=== PATIENT | female | born 1985 | race Asian ===

== ENCOUNTER 2019-10-11 11:40 | Inpatient (IN) | payer OTHER ==
[~2019-10-11] VITALS: Ht 165.1 cm; Wt 81.8 kg
[~2019-10-11 11:40] MED LIST: IBUP-1222 PO; LEVO50TA5; OXYC-302 PO; PREN1TAB60
[2019-10-11] MEDS ORDERED: LACTATED RINGERS 1,000 ML IV SCH ×2 (11:42→15:15)
[2019-10-11] MEDS ORDERED: SODIUM CITRATE/CITRIC ACID 30 ML UDC PO ONE (12:00)
[2019-10-11] MEDS ORDERED: LACTATED RINGERS 1,000 ML IVBOLUS ONE (12:00)
[2019-10-11] MEDS ORDERED: PLEASE ENTER HEIGHT AND WEIGHT MC SCH (12:00)
[2019-10-11] MEDS ORDERED: METOCLOPRAMIDE 5 MG/ML, 2ML IV ONE (12:00)
[2019-10-11 12:19] LABS: BASOPHILS # (AUTO) 0.03 x10^3/uL (0-0.1); BASOPHILS % (AUTO) 0 % (0-1); EOSINOPHILS # (AUTO) 0.04 x10^3/uL (0-0.4); EOSINOPHILS % (AUTO) 1 % (1-7); LYMPHOCYTES # (AUTO) 1.06 x10^3/uL (1-3.4); LYMPHOCYTES % (AUTO) 14 % (22-44); MD NO; MEAN CORPUSCULAR HEMOGLOBIN 31.8 pg (27.0-34.8); MEAN CORPUSCULAR HGB CONC 33.6 g/dL (32.4-35.8); MEAN CORPUSCULAR VOLUME 94.6 fL (80-100); MEAN PLATELET VOLUME 11.3 fL (7.4-10.4); MONOCYTES # (AUTO) 0.42 x10^3/uL (0.2-0.8); MONOCYTES % (AUTO) 6 % (2-9); NEUTROPHILS % (AUTO) 79 % (42-75); PLATELET COUNT 147 x10^3/uL (130-400); RED BLOOD COUNT 4.07 x10^6/uL (3.82-5.3); RED CELL DISTRIBUTION WIDTH 13.4 % (9.6-15.2)
[2019-10-11] MEDS ORDERED: NEWBORN KIT ONE (12:27)
[2019-10-11] MEDS ORDERED: OXYTOCIN 30U/ 0.9% NaCL 500ML 500 ML ONE (12:27)
[2019-10-11] MEDS ORDERED: METOCLOPRAMIDE 5 MG/ML, 2ML ONE (12:27)
[2019-10-11] MEDS ORDERED: OXYcodone 5 MG/5 ML ORAL.SOL UDC PO PRN (13:30)
[2019-10-11] MEDS ORDERED: EPHEDRINE 50 MG/ML, 1ML IVPush PRN (13:30)
[2019-10-11] MEDS ORDERED: ONDANSETRON 2MG/ML, 2ML IVPush PRN (13:30)
[2019-10-11] MEDS ORDERED: hydrALAzine 20 MG/ML, 1ML IV PRN (13:30)
[2019-10-11] MEDS ORDERED: MIDAZOLAM 1 MG/ML, 2ML IV PRN (13:30)
[2019-10-11] MEDS ORDERED: FENTANYL PF 100 MCG/2ML IV PRN (13:30)
[2019-10-11] MEDS ORDERED: HYDROcodone/APAP 7.5-325MG/15ML UDC PO PRN (13:30)
[2019-10-11] MEDS ORDERED: HYDROmorphone 2 MG/ML, 1ML IVPush PRN (13:30)
[2019-10-11] MEDS ORDERED: METOPROLOL 1 MG/ML, 5ML IV PRN (13:30)
[2019-10-11] MEDS ORDERED: MEPERIDINE/PF 25MG/0.5ML IVPush PRN (13:30)
[2019-10-11] MEDS ORDERED: PROMETHAZINE 25 MG/ML, 1ML IV PRN (13:30)
[2019-10-11] MEDS ORDERED: LABETALOL 5MG/ML, 20ML IV PRN (13:30)
[2019-10-11] MEDS ORDERED: ALBUTEROL SULFATE 2.5 MG/3 ML NPPB PRN (13:30)
[2019-10-11 13:34] VITALS: BP 124/66
[2019-10-11] MEDS ORDERED: FENTANYL PF 100 MCG/2ML ONE ×2 (13:43→17:00)
[2019-10-11] MEDS ORDERED: EPHEDRINE 50 MG/ML, 1ML ONE (13:43)
[2019-10-11] MEDS ORDERED: KETOROLAC 30 MG/1 ML ONE (13:43)
[2019-10-11] MEDS ORDERED: CEFAZOLIN 1,000 MG ONE (13:43)
[2019-10-11] MEDS ORDERED: OXYTOCIN 10 UNITS/ML, 1ML ONE (13:43)
[2019-10-11] MEDS ORDERED: DEXAMETHASONE 4 MG/ML, 1ML ONE (13:43)
[2019-10-11] MEDS ORDERED: PHENYLEPHRINE 10 MG/ML ONE (13:43)
[2019-10-11] MEDS ORDERED: ONDANSETRON 2MG/ML, 2ML ONE (13:43)
[2019-10-11] MEDS ORDERED: HYDROmorphone 2 MG/ML, 1ML ONE (13:44)
[2019-10-11] MEDS: LACTATED RINGERS 1,000 ML IV SCH ×2 (15:15→23:15)
[2019-10-11] MEDS ORDERED: OXYcodone IR 5MG TABLET PO PRN (15:30)
[2019-10-11] MEDS ORDERED: MORPHINE SULFATE 4 MG/ML, 1ML IVPush PRN (15:30)
[2019-10-11] MEDS ORDERED: MISOPROSTOL 200 MCG TABLET PR PRN (15:30)
[2019-10-11] MEDS ORDERED: ONDANSETRON 2MG/ML, 2ML IV PRN (15:30)
[2019-10-11] MEDS ORDERED: CALCIUM CARBONATE 500 MG TAB.CHEW PO PRN (15:30)
[2019-10-11] MEDS ORDERED: BISACODYL 10 MG SUPP PR PRN (15:30)
[2019-10-11] MEDS ORDERED: morphine SULFATE 10 MG/ML, 1ML IV PRN (15:30)
[2019-10-11] MEDS: OXYTOCIN 30U/ 0.9% NaCL 500ML 500 ML IV SCH (16:09)
[2019-10-11] MEDS ORDERED: OXYcodone 5 MG/5 ML ORAL.SOL UDC ONE (16:20)
[2019-10-11 17:20] VITALS: BP 114/73
[2019-10-11 19:15] VITALS: BP 115/66
[2019-10-11] MEDS: ACETAMINOPHEN 500 MG TABLET PO SCH (20:27)
[2019-10-11] MEDS: KETOROLAC 30 MG/1 ML IV SCH (21:17)
[2019-10-11] MEDS: OXYcodone IR 5MG TABLET PO PRN (22:14)
[2019-10-11 22:59] LABS: BASOPHILS # (AUTO) 0.01 x10^3/uL (0-0.1); BASOPHILS % (AUTO) 0 % (0-1); EOSINOPHILS % (AUTO) 1 % (1-7); LYMPHOCYTES % (AUTO) 6 % (22-44); MD NO; MEAN CORPUSCULAR VOLUME 93.9 fL (80-100); MEAN PLATELET VOLUME 10.6 fL (7.4-10.4); MONOCYTES # (AUTO) 0.45 x10^3/uL (0.2-0.8); MONOCYTES % (AUTO) 4 % (2-9); NEUTROPHILS # (AUTO) 9.78 x10^3/uL (1.8-6.8); NEUTROPHILS % (AUTO) 89 % (42-75); PLATELET COUNT 118 x10^3/uL (130-400); RED CELL DISTRIBUTION WIDTH 13.3 % (9.6-15.2)
[2019-10-11 23:32] VITALS: BP 102/63
[2019-10-12] MEDS: OXYTOCIN 30U/ 0.9% NaCL 500ML 500 ML IV SCH ×3 (01:15→21:15)
[2019-10-12] MEDS: ACETAMINOPHEN 500 MG TABLET PO SCH ×4 (02:17→20:21)
[2019-10-12] MEDS: KETOROLAC 30 MG/1 ML IV SCH ×3 (03:20→14:17)
[2019-10-12 03:36] VITALS: BP 92/53
[2019-10-12] MEDS: OXYcodone IR 5MG TABLET PO PRN ×3 (06:04→22:43)
[2019-10-12] MEDS: LACTATED RINGERS 1,000 ML IV SCH ×3 (07:15→23:15)
[2019-10-12] MEDS: PRENATAL VIT/IRON/FA 1 EACH TABLET PO SCH (07:57)
[2019-10-12] MEDS: DOCUSATE 100 MG CAPSULE PO PRN ×2 (07:57→20:21)
[2019-10-12 08:00] VITALS: BP 100/62
[2019-10-12] MEDS: FERROUS GLUCONATE 324 MG TABLET PO SCH ×2 (10:07→17:06)
[2019-10-12 11:28] LABS: BASOPHILS # (AUTO) 0.02 x10^3/uL (0-0.1); BASOPHILS % (AUTO) 0 % (0-1); EOSINOPHILS # (AUTO) 0.02 x10^3/uL (0-0.4); EOSINOPHILS % (AUTO) 0 % (1-7); LYMPHOCYTES # (AUTO) 1.24 x10^3/uL (1-3.4); LYMPHOCYTES % (AUTO) 18 % (22-44); MD NO; MEAN CORPUSCULAR HEMOGLOBIN 31.6 pg (27.0-34.8); MEAN CORPUSCULAR HGB CONC 33.4 g/dL (32.4-35.8); MEAN CORPUSCULAR VOLUME 94.6 fL (80-100); MEAN PLATELET VOLUME 10.6 fL (7.4-10.4); MONOCYTES # (AUTO) 0.52 x10^3/uL (0.2-0.8); MONOCYTES % (AUTO) 8 % (2-9); NEUTROPHILS % (AUTO) 74 % (42-75); PLATELET COUNT 119 x10^3/uL (130-400); RED BLOOD COUNT 2.76 x10^6/uL (3.82-5.3); RED CELL DISTRIBUTION WIDTH 13.4 % (9.6-15.2)
[2019-10-12] MEDS ORDERED: KETOROLAC 30 MG/1 ML ONE (13:40)
[2019-10-12] MEDS: IBUPROFEN 600 MG TABLET PO SCH ×2 (15:30→20:21)
[2019-10-12] MEDS: SIMETHICONE 80 MG CHEW TAB PO PRN ×2 (17:08→22:43)
[2019-10-12 20:15] VITALS: BP 107/66
[2019-10-13] MEDS: IBUPROFEN 600 MG TABLET PO SCH ×2 (02:14→07:32)
[2019-10-13] MEDS: ACETAMINOPHEN 500 MG TABLET PO SCH ×2 (02:14→07:33)
[2019-10-13] MEDS: OXYcodone IR 5MG TABLET PO PRN (04:36)
[2019-10-13] MEDS: SIMETHICONE 80 MG CHEW TAB PO PRN (04:36)
[2019-10-13 05:47] LABS: BASOPHILS # (AUTO) 0.02 x10^3/uL (0-0.1); BASOPHILS % (AUTO) 0 % (0-1); EOSINOPHILS # (AUTO) 0.06 x10^3/uL (0-0.4); EOSINOPHILS % (AUTO) 1 % (1-7); LYMPHOCYTES # (AUTO) 1.49 x10^3/uL (1-3.4); LYMPHOCYTES % (AUTO) 23 % (22-44); MD NO; MEAN CORPUSCULAR HEMOGLOBIN 32.3 pg (27.0-34.8); MEAN CORPUSCULAR HGB CONC 33.8 g/dL (32.4-35.8); MEAN CORPUSCULAR VOLUME 95.3 fL (80-100); MEAN PLATELET VOLUME 9.4 fL (7.4-10.4); MONOCYTES # (AUTO) 0.41 x10^3/uL (0.2-0.8); MONOCYTES % (AUTO) 6 % (2-9); NEUTROPHILS % (AUTO) 70 % (42-75); PLATELET COUNT 110 x10^3/uL (130-400); RED BLOOD COUNT 2.64 x10^6/uL (3.82-5.3); RED CELL DISTRIBUTION WIDTH 13.8 % (9.6-15.2)
[2019-10-13] MEDS: LACTATED RINGERS 1,000 ML IV SCH (07:15)
[2019-10-13] MEDS: OXYTOCIN 30U/ 0.9% NaCL 500ML 500 ML IV SCH (07:15)
[2019-10-13] MEDS: FERROUS GLUCONATE 324 MG TABLET PO SCH (07:32)
[2019-10-13] MEDS: DOCUSATE 100 MG CAPSULE PO PRN (07:32)
[2019-10-13] MEDS: PRENATAL VIT/IRON/FA 1 EACH TABLET PO SCH (07:32)
[2019-10-13 07:56] VITALS: BP 103/66
[2019-10-13] MEDS ORDERED: FE F1CAP8 PO (11:09)
== END 2019-10-13 12:28 | disposition home or self-care (01) | DRG 787 ==
LOC: LDIP 11:40 → 2NW 17:11
PROVIDERS: ADMIT Obstetrics & Gynecology; ATTEND Obstetrics & Gynecology
PROC: 10D00Z1 Extraction of Products of Conception, Low, Open Approach (ICD-10-PCS; principal; 2019-10-11)
DX: O34.211 Maternal care for low transverse scar from previous cesarean delivery (principal); D62 Acute posthemorrhagic anemia; Z37.0 Single live birth; O90.81 Anemia of the puerperium; O24.424 Gestational diabetes mellitus in childbirth, insulin controlled; Z85.850 Personal history of malignant neoplasm of thyroid; Z83.3 Family history of diabetes mellitus; Z82.49 Family history of ischemic heart disease and other diseases of the circulatory system; Z3A.38 38 weeks gestation of pregnancy
CPT/HCPCS: 36415; 82962; 85025; 86592; 86850; 86900; 87635; G0378; J0690; J1100; J1170; J1885; J2405; J3010; J2370; J2590; J2765; J7120